=== PATIENT | female | born 1985 | race Caucasian/White ===

== ENCOUNTER → 2019-11-11 08:25 | Outpatient (BNVA) | payer MEDICAID, SELFPAY | PROVIDERS: Family Provider Nurse Practitioner Family; PCP Nurse Practitioner Family; Visit Provider Psychiatry & Neurology Psychiatry | DX: F43.12 Post-traumatic stress disorder, chronic (principal); F33.2 Major depressive disorder, recurrent severe without psychotic features; F15.21 Other stimulant dependence, in remission; F17.200 Nicotine dependence, unspecified, uncomplicated | CPT/HCPCS: 99204 ==

== ENCOUNTER → 2020-08-12 13:17 | Outpatient (BNVA) | payer MEDICAID, SELFPAY | PROVIDERS: Family Provider Nurse Practitioner Family; PCP Nurse Practitioner Family; Visit Provider Obstetrics & Gynecology | DX: Z30.9 Encounter for contraceptive management, unspecified (principal); Z30.011 Encounter for initial prescription of contraceptive pills | CPT/HCPCS: 81025 ==

== ENCOUNTER → 2020-10-27 10:01 | Outpatient (BNVA) | payer MEDICAID, SELFPAY | PROVIDERS: Family Provider Nurse Practitioner Family; PCP Nurse Practitioner Family; Visit Provider Obstetrics & Gynecology | DX: Z30.9 Encounter for contraceptive management, unspecified (principal); Z20.822 Contact with and (suspected) exposure to COVID-19 | CPT/HCPCS: 87635 ==

== ENCOUNTER 2020-11-02 08:29 | Day surgery (SDC) | payer MEDICAID, SELFPAY ==
[2020-10-31 11:10] VITALS: BMI 28.1
[2020-10-31 12:02] LABS: OR HCG Qualitative Urine Negative (Negative)
[2020-10-31 12:13] LABS: Specific Gravity, Urine 1.005 (1.005-1.030); Urine Appearance Clear (CLEAR); Urine Color Yellow (Yellow); pH Urine 7 (5-7)
[2020-10-31 12:14] LABS: Add Urine Microscopic? YES; Bilirubin Urine Neg (Negative); Blood Urine Neg (Negative); Glucose Urine UA Norm (Normal); Ketones Urine Negative (Negative); Leukocyte Esterase Urine Trace (Negative); Nitrate Urine Negative (Negative); Protein Urine Neg (Negative); Urobilinogen Urine Norm (Negative)
[2020-10-31 12:15] LABS: RBC Urine RARE /hpf (0-2)
[2020-10-31 12:16] LABS: Add Urine Culture? No; Bacteria Urine TRACE /hpf
[2020-10-31 12:24] LABS: Basophils # 0.1 10^3/uL (0.0-0.1); Basophils % 0.8 %; Eosinophils # 0.2 10^3/uL (0.0-0.8); Eosinophils % 2.2 %; Hematocrit 44.4 % (37.0-47.0); Hemoglobin 14.1 g/dL (11.5-15.3); Lymphocytes % 28.4 %; Mean Corpuscular HGB Conc 31.8 g/dL (30.0-36.0); Mean Corpuscular Hemoglobin 29.9 pg (28.0-34.0); Mean Corpuscular Volume 94.3 fL (81-99); Mean Platelet Volume 10.5 fL (7.4-10.4); Monocytes # 0.8 10^3/uL (0.2-0.9); Monocytes % 7.3 %; Neutrophils # 6.47 10^3/uL (1.8-7.7); Nucleated Red Blood Cells % 0 %; Platelet Count 316 10^3/cmm (130-400); Red Blood Count 4.71 10^6/uL (4.1-5.3); Red Cell Distribution Width 12.5 % (12.1-15.1); White Blood Count 10.6 10^3/uL (4.0-10.0)
[2020-10-31 12:44] LABS: Anion Gap 15.2 (5-19); Blood Urea Nitrogen 8 mg/dL (6-20); Calcium 8.7 mg/dL (8.5-10.5); Carbon Dioxide 24 mmol/L (22-29); Chloride 102 mmol/L (98-107); Glomerular Filtration Rate 142.1 mL/min (90-130); Glucose 86 mg/dL (65-115); Osmolality Calculated 282 mOsm/kg (285-295); Potassium 4.2 mmol/L (3.5-5.1); Sodium 137 mmol/L (136-145)
--- NOTE | 2020-10-31 13:09 | P.ANESASSM_ITS ---
Pre-Anesthetic Assessment Pre-Anesthetic Assessment: Height/Weight: Height 1.65 m Weight 76.657 kg Preop Diagnosis: Desire permanent sterilization Proposed Procedure: Operation Date: 11/02/20 09:20 Proposed Procedures p Laparoscopic bilateral salpingectomy 08920 Z30.9(Bilateral) - Omar Khalil MD Was Beta Chaitanya taken within 24 hours: N/A Was Clonidine taken within 24 hours: N/A Social: Social History: Tobacco and No alcohol Exam: Pre-Anes Outpt Exam: alert, oriented x 3 and regular rate & rhythm Airway: Submandibular: WNL Cervical ROM: WNL MP: 2 Dentition: Loose (middle teeth lower arch) Additional comments: Poor dentition Pulmonary: Pulmonary: COPD Neuropsych: Neuropsych: Depression Anesthetic Plan: ASA status: 2 Anesthesia: General Risk of > 500 ml blood loss (7ml/kg in children): No PFSH Anesthesia PFSH: Family History Grandmother Diabetes maternal and paternal Stroke maternal and paternal Breast cancer, Onset Age: 40 maternal Anesthesia complication maternal Heart disease maternal great Grandfather Stroke maternal Diabetes maternal and paternal Heart disease paternal Father Thyroid condition Hyperlipidemia Hypertension Heart disease Mother Anesthesia complication Family/Other Anesthesia complication maternal aunt Denies family history of Colon cancer Ovarian cancer Clotting disorder Bleeding disorder Uterine cancer Social History Smoking and tobacco status: current every day smoker cigarettes Packs smoked per day: 1 Years cigarettes smoked: 10 Alcohol intake: current Alcohol intake frequency: holidays/special occasions only Alcohol type: hard liquor Other details 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 Current gender identity: Female Female Reproductive History: Date of last menstrual period: 10/04/20 Data Anesthesia CBC & Chem 7: 10/31/20 12:02 10/31/20 12:02 Other Labs: Laboratory Results - last 48 hr 10/31/20 10/31/20 10/31/20 11:40 11:40 12:02 WBC RBC Hgb Hct MCV MCH MCHC RDW Plt Count MPV Neut % (Auto) Lymph % (Auto) [place] % (Auto) Eos % (Auto) Baso % (Auto) Neut # (Auto) Lymph # (Auto) [place] # (Auto) Eos # (Auto) Baso # (Auto) Nucleated RBC % (auto) Nucleated RBCs # Sodium 137 Potassium 4.2 Chloride 102 Carbon Dioxide 24 Anion Gap 15.2 BUN 8 Creatinine 0.5 GFR Calculation 142.1 H Glucose 86 Calculated Osmolality 282 L Calcium 8.7 Urine Color Yellow Urine Appearance Clear Urine pH 7 Ur Specific [place] 1.005 Urine Protein Neg Urine Glucose (UA) Norm Urine Ketones Negative Urine Blood Neg Urine Nitrate Negative Urine Bilirubin Neg Urine Urobilinogen Norm Ur Leukocyte Esterase Trace H Urine RBC Rare Urine WBC 5-10 H Ur Squamous Epith Cells 5-10 H Amorphous Sediment Not Reportable Urine Bacteria Trace Urine HCG, Qual Negative 10/31/20 12:02 WBC 10.6 H RBC 4.71 Hgb 14.1 Hct 44.4 MCV 94.3 MCH 29.9 MCHC 31.8 RDW 12.5 Plt Count 316 MPV 10.5 H Neut % (Auto) 61.0 Lymph % (Auto) 28.4 [place] % (Auto) 7.3 Eos % (Auto) 2.2 Baso % (Auto) 0.8 Neut # (Auto) 6.47 Lymph # (Auto) 3.0 [place] # (Auto) 0.8 Eos # (Auto) 0.2 Baso # (Auto) 0.1 Nucleated RBC % (auto) 0 Nucleated RBCs # 0.0 Sodium Potassium Chloride Carbon Dioxide Anion Gap BUN Creatinine GFR Calculation Glucose Calculated Osmolality Calcium Urine Color Urine Appearance Urine pH Ur Specific [place] Urine Protein Urine Glucose (UA) Urine Ketones Urine Blood Urine Nitrate Urine Bilirubin Urine Urobilinogen Ur Leukocyte Esterase Urine RBC Urine WBC Ur Squamous Epith Cells Amorphous Sediment Urine Bacteria Urine HCG, Qual Cardiac Studies: No Data to Display
[2020-11-02] VITALS (8 sets, daily range): BP systolic 89–121; BP diastolic 53–80; PULSE 59–96; RESP 10–18; TEMP 35.9–36.6; O2SAT 93–98
--- NOTE | 2020-11-02 08:14 | W.PM.OPSUD ---
Surgery/Procedure H&P Update DATE OF PROCEDURE: November 02, 2020 DATE H&P PERFORMED: 10/31/20 H&P UPDATE INFORMATION: I have reviewed H&P completed within last 30 days, I have examined patient prior to procedure and No changes to prior documentation PREOP DIAGNOSIS: Desire permanent sterilization PLANNED PROCEDURE: Operation Date: 11/02/20 09:40 Proposed Procedures p Laparoscopic bilateral salpingectomy 13843 Z30.9(Bilateral) - Omar Khalil MD
[2020-11-02] MEDS: sodium chloride 0.9% 1,000 ML 30 ML IV (08:45)
[2020-11-02] MEDS: sodium chloride 0.9% 500 ML IV (08:50)
--- NOTE | 2020-11-02 08:57 | P.ANESUD_ITS ---
Pre-Anesthetic Update Pre-Anesthetic Assessment: Date of Surgery/Procedure: 11/02/20 Preop Amisha gnosis: Desire permanent sterilization Proposed Procedure: Operation Date: 11/02/20 09:40 Proposed Procedures p Laparoscopic bilateral salpingectomy 76844 Z30.9(Bilateral) - Omar Khalil MD Any changes to Pre-Anesthetic Assessment?: No Last Intake: Intake Last Liquid Date 11/01/20 Last Liquid Time 22:00 Last Solid Date 11/01/20 Last Solid Time 22:00 Labs Last 48hrs: Laboratory Results - last 48 hr 10/31/20 10/31/20 10/31/20 11:40 11:40 12:02 WBC RBC Hgb Hct MCV MCH MCHC RDW Plt Count MPV Neut % (Auto) Lymph % (Auto) [place] % (Auto) Eos % (Auto) Baso % (Auto) Neut # (Auto) Lymph # (Auto) [place] # (Auto) Eos # (Auto) Baso # (Auto) Nucleated RBC % (a uto) Nucleated RBCs # Sodium 137 Potassium 4.2 Chloride 102 Carbon Dioxide 24 Anion Gap 15.2 BUN 8 Creatinine 0.5 GFR Calculation 142.1 H Glucose 86 Calculated Osmolal ity 282 L Calcium 8.7 Urine Color Yellow Urine Appearance Clear Urine pH 7 Ur Specific Gravit y 1.005 Urine Protein Neg Urine Glucose (UA) Norm Urine Ketones Negative Urine Blood Neg Urine Nitrate Negative Urine Bilirubin Neg Urine Urobilinogen Norm Ur Leukocyte Constance ase Trace H Urine RBC Rare Urine WBC 5-10 H Ur Squamous Epith Cells 5-10 H Amorphous Sediment Not Reportable Urine Bacteria Trace Urine HCG, Qual Negative Blood Type Rho(D) Type Antibody Screen 10/31/20 10/31/20 12:02 12:02 WBC 10.6 H RBC 4.71 Hgb 14.1 Hct 44.4 MCV 94.3 MCH 29.9 MCHC 31.8 RDW 12.5 Plt Count 316 MPV 10.5 H Neut % (Auto) 61.0 Lymph % (Auto) 28.4 [place] % (Auto) 7.3 Eos % (Auto) 2.2 Baso % (Auto) 0.8 Neut # (Auto) 6.47 Lymph # (Auto) 3.0 [place] # (Auto) 0.8 Eos # (Auto) 0.2 Baso # (Auto) 0.1 Nucleated RBC % (a uto) 0 Nucleated RBCs # 0.0 Sodium Potassium Chloride Carbon Dioxide Anion Gap BUN Creatinine GFR Calculation Glucose Calculated Osmolal ity Calcium Urine Color Urine Appearance Urine pH Ur Specific Gravit y Urine Protein Urine Glucose (UA) Urine Ketones Urine Blood Urine Nitrate Urine Bilirubin Urine Urobilinogen Ur Leukocyte Constance ase Urine RBC Urine WBC Ur Squamous Epith Cells Amorphous Sediment Urine Bacteria Urine HCG, Qual Blood Type B Positive Rho(D) Type Positive / 4+ Antibody Screen Negative Vitals: Temperature 96.6 F L 11/02/20 08:41 Temperature Source Temporal Artery S can 11/02/20 08:41 Pulse Rate 85 11/02/20 08:41 Pulse Rhythm 11/02/20 08:41 Pulse Strength 3+ Normal 11/02/20 08:41 Respiratory Rate 18 11/02/20 08:41 Blood Pressure 121/80 11/02/20 08:41 Blood Pressure Radha n 93 11/02/20 08:41 Pulse Oximetry 98 11/02/20 08:41 Oxygen Delivery Me thod 11/02/20 08:41 Exam: Pre-Anes Outpt Exam: alert, oriented x 3, clear to auscultation bilaterally and regular rate & rhythm Additional Exam Findings (including area of procedure): Loose middle lower incisors Cardiac Studies: No Data to Display
[2020-11-02] MEDS: scopolamine 1.5 Patch 1 PATCH TRANSDERMA (09:04)
[2020-11-02] MEDS: levofloxacin-dextrose 5 % 500 MG/100 ML PREMIX 100 MG IV (09:24)
[2020-11-02] MEDS: vancomycin 1,000 MG in sodium chloride 0.9% 250 ML 250 MG IV (09:38)
--- NOTE | 2020-11-02 09:51 | PM.OP ---
Operative Report Date of procedure: November 02, 2020 Pre-op Diagnosis: Desire permanent sterilization Post-op diagnosis: same Procedure Done: Laparoscopic bilateral salpingectomy fulguration Specimens removed/disposition: Left and right fallopian tubes Surgeon: Omar Khalil MD Anesthesia: General Estimated blood loss (mL): 5 IV fluids (mL): 500 Urine output (mL): 200 Complications: None Condition: stable Disposition: PACU Brief History: 35-year-old female desires permanent sterilization Procedure: After informed consent, the patient was taken to the operating room where general anesthesia was administered. She was placed in the dorsal lithotomy position and prepped and draped in sterile fashion. Pre-Procedure Time-Out verifying the correct patient identity, correct procedure verified with consent, correct site and side, correct patient position, availability of correct implants and any special equipment or requirements was performed and acknowledge by the OR team. The patient was examined under anesthesia and found to have a normal uterus with normal adnexa. A weighted speculum was placed in the vagina, and the anterior lip of cervix was grasped with the single toothed tenaculum. A uterine manipulator was advanced into the endocervical canal and uterus. The tenaculum was removed after uterine manipulator was secured. The speculum was removed from the vagina. An intraumbilical incision was made with a scalpel. While tenting up on the abdomen, a Verres needle was admitted into the intra-abdominal cavity. A saline drop test was performed and noted to be within normal limits. Pneumoperitoneum was attained with 4 liters of carbon dioxide. The Verres needle was removed. A 5 mm Opitc view trocar and sleeve were admitted into the abdomen and laparoscopic confirmation of location was achieved. A second incision was made 3 cm above the symphysis pubis, and a 5 mm trocar sleeves were admitted into the abdomen under direct laparoscopic visualization without complication. A survey revealed normal abdominal anatomy with the exception of string adhesion to the right lower anterior abdominal wall. A 5 mm blunt probe was advanced through the second trocar sleeve, and light manipulation of ovaries and uterus to assess the posterior aspects was performed. The pelvic survey shows normal uterus, left and right adnexa. The left ovary was noted with a follicular cyst. The string adhesion was fulgurated and transected with good hemostasis with the Voyant. The patient was placed into Trendelenburg position. The fallopian tubes were inspected bilaterally and the fimbriated ends of the fallopian tubes were visualized bilaterally. Attention was then directed to the right side. The fallopian tube and mesosalpinx were grasped and the underlying mesosalpinx was cauterized and cut using the Voyant device. Serial cauterization and cutting was used to separate the fallopian tube from the underlying mesosalpinx until it could be amputated cutting it approximated 2 cm from the cornua. Attention was then turned to the contralateral fallopian tube, which was removed in similar fashion. Both specimens were removed through the trocar and sent to pathology. The instruments were removed. The suprapubic trocar port was removed under direct visualization insuring good hemostasis. The carbon dioxide was allowed to escape from the abdomen. The intraumbilical trocar sleeve was withdrawn under visualization with laparoscope in the sleeve to insure hemostasis. The skin incisions were closed with 3-O Monocryl subcuticular stich and Dermabond. The instruments were removed from the vagina, and excellent hemostasis was noted. The patient tolerated the procedure well, and sponge, lap and needle count were correct times two. The patient was taken to the recovery room in good condition.
[2020-11-02] MEDS: ondansetron 2 mg/ML SDV 2 mL 4 MG IVP (10:18)
[2020-11-02] MEDS: HYDROcodone-acetaminophen 5-325 mg Tablet 1 TAB PO (10:37)
--- NOTE | 2020-11-02 13:34 | ANE.PACU2 ---
Inpatient post-anesthesia follow up: Airway intact: Yes Vital signs: Temperature 98 F Pulse Rate 68 Respiratory Rate 15 Blood Pressure 113/75 Pulse Oximetry 97 Oxygen Delivery Me thod Room Air Oxygen Flow Rate 8 Fraction of Inspir ed Oxygen Hydration adequate: Yes Nausea and vomiting: No Pain level: 2 Mental status: Baseline
== END 2020-11-02 12:00 | disposition home or self-care (01) ==
PROVIDERS: PCP Nurse Practitioner Family; Visit Provider Obstetrics & Gynecology
PROC: (CPT 58661; principal; 2020-11-02 09:30)
DX: Z30.2 Encounter for sterilization (principal); J44.9 Chronic obstructive pulmonary disease, unspecified; F32.9 Major depressive disorder, single episode, unspecified; F17.210 Nicotine dependence, cigarettes, uncomplicated
CPT/HCPCS: 58661; 36415; 80048; 81001; 81025; 84703; 85025; 86850; 86900; 88302; 96365; J1100; J1885; J1956; J2250; J2405; J2704; J2710; J3010; J3370; J3490; J7030; J7040; J7050

== ENCOUNTER 2020-11-27 00:01 | Emergency (ER) | payer MEDICAID, SELFPAY ==
[2020-11-27 00:03] VITALS: BP 153/96; PULSE 121; RESP 22; TEMP 36.9; O2SAT 98; BMI 28.1
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
[2020-11-27] MEDS: morphine 4 mg/mL SDV 1 mL IM (00:47)
[2020-11-27] MEDS: LORazepam 2 mg/mL INJ 1 mL IM (00:49)
[2020-11-27 02:07] VITALS: BP 147/85; PULSE 112; RESP 21; O2SAT 99
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
--- NOTE | 2020-12-01 11:23 | DCPLANNER ---
Pam from the [facility] emailed pillowcase turner, stating that clinic tried to call patient several times, unable to reach patient at this time a letter was sent to patient to call clinic if appointment was needed.
== END 2020-11-27 02:07 | disposition home or self-care (01) ==
PROVIDERS: Emergency Provider Emergency Medicine
DX: S02.841A Fracture of lateral orbital wall, right side, initial encounter for closed fracture (principal); S02.31XA Fracture of orbital floor, right side, initial encounter for closed fracture; S02.40CA Maxillary fracture, right side, initial encounter for closed fracture; S02.40EA Zygomatic fracture, right side, initial encounter for closed fracture; Y04.2XXA Assault by strike against or bumped into by another person, initial encounter; F17.210 Nicotine dependence, cigarettes, uncomplicated
CPT/HCPCS: 70450; 70486; 96372; 99283; J2060; J2270